=== PATIENT | female | born 1985 | race Two or more races ===

== ENCOUNTER 2023-08-23 15:58 | Emergency (ER) | payer BC, MEDICAID ==
[~2023-08-23] VITALS: Ht 182.9 cm; Wt 90.0 kg
[2023-08-23] MEDS ORDERED: GABA-1250 PO (18:49)
[2023-08-23 20:12] VITALS: BP 151/93; PULSE 70; RESP 18; TEMP 98.6; O2SAT 99
== END 2023-08-23 20:15 | disposition home or self-care (01) ==
LOC: ER 15:58
DX: M54.16 Radiculopathy, lumbar region (principal); M79.604 Pain in right leg; Z88.8 Allergy status to other drugs, medicaments and biological substances
CPT/HCPCS: 93971